=== PATIENT | female | born 1955 ===

== ENCOUNTER 2024-01-06 03:54 | Day surgery (SDC) | payer OTHER ==
[2023-12-31 13:11] VITALS: BMI 32.7
[2024-01-06] MEDS ORDERED: oxyCODONE HCL 5 MG TABLET PO PRN (10:47)
[2024-01-06] MEDS ORDERED: IBUPROFEN 600 MG TABLET (FP) PO PRN (10:47)
[2024-01-06] MEDS ORDERED: ONDANSETRON 4 MG/2 ML VIAL IVPUSH PRN (10:47)
[2024-01-06] MEDS ORDERED: IBUPROFEN 800 MG/8 ML IJ IVPB PRN (10:47)
[2024-01-06] MEDS ORDERED: ELECTROLYTE-148 SOLN 1,000 ML IV SCH (11:00)
[2024-01-06] MEDS ORDERED: MIDAZOLAM HCL 2 MG/2 ML SINGLE DOSE VIAL ONE (11:34)
[2024-01-06] MEDS ORDERED: PROPOFOL 20 ML ONE (11:34)
[2024-01-06] MEDS ORDERED: LACTATED RINGERS SOLUTION 1,000 ML IV SCH (12:45)
[2024-01-06 14:22] VITALS: RESP 16
[2024-01-06 14:23] VITALS: BP 140/69; PULSE 75; TEMP 97.6
== END 2024-01-06 14:30 | disposition home or self-care (01) ==
LOC: JASU-SURG 03:54
PROVIDERS: ATTEND Obstetrics & Gynecology
PROC: 0UB98ZZ Excision of Uterus, Via Natural or Artificial Opening Endoscopic (ICD-10-PCS; principal; 2024-01-06 11:00)
DX: N95.0 Postmenopausal bleeding (principal); N84.0 Polyp of corpus uteri
CPT/HCPCS: 86850; 86900; 86901; 88305-TC; 94760